=== PATIENT | female | born 1960 | race Two or more races ===

== ENCOUNTER 2018-01-03 10:33 | Outpatient (CLI) | payer OTHER | END 2018-01-03 12:09 | disposition home or self-care (01) | LOC: SONOGRAMA 10:33 | DX: E04.1 Nontoxic single thyroid nodule (principal) ==

== ENCOUNTER 2019-03-02 12:06 | Outpatient (CLI) | payer OTHER ==
[~2019-03-02] VITALS: Ht 33 cm; Wt 55.3 kg
== END 2019-03-02 18:27 | disposition home or self-care (01) ==
LOC: OFIC 805 12:06
DX: K11.5 Sialolithiasis (principal); H69.90 Unspecified Eustachian tube disorder, unspecified ear

== ENCOUNTER 2019-05-10 09:26 | Outpatient (CLI) | payer OTHER ==
[~2019-05-10] VITALS: Ht 152.4 cm; Wt 55.3 kg
== END 2019-05-10 09:42 | disposition home or self-care (01) ==
LOC: OFIC 805 09:26
DX: K11.5 Sialolithiasis (principal); H69.93 Unspecified Eustachian tube disorder, bilateral; H93.13 Tinnitus, bilateral